=== PATIENT | female | born 1965 | race African-American/Black ===

== ENCOUNTER 2017-02-12 13:30 | Emergency (ER) | payer SELFPAY ==
[2017-02-12 13:35] VITALS: BP 179/89; PULSE 106; TEMP 98.4; BMI 32.5
[2017-02-12] MEDS ORDERED: BACITRACIN 15 GM TUBE TOPICAL OINTMENT TP STA (14:18)
[2017-02-12] MEDS ORDERED: BACITRACIN 15 GM TUBE TOPICAL OINTMENT ONE (14:21)
--- NOTE | 2017-02-12 14:24 | PDOC ---
Post Exposure HPI - General Chief Complaint: Non EmpBld/Body Flud Exposure Stated Complaint: NEEDLE PRICK Time Seen by Provider: 02/12/17 14:02 History Source: Patient Exam Limitations: No Limitations - History of Present Illness Initial Comments: 02/12/17 14:18 51 yr female works at [employer] states she was accidentaly stuck by a scalpel to her right hand after the doctor used it on a patient. Pt states the source patient is HIV and Hepatitis negative, she confirmed this with the doctor taking care of the pt at the [facility]. . pt unknown tetanus. no allergies. Timing: just prior to arrival Severity: mild Exposed Location: Right: Hand(s) (base of second digit palm side ) Assessing Significant Risk PEP: Yes Percutaneous Past History - Past Medical History Allergies/Adverse Reactions: Allergies No Known Allergies Allergy (Verified 02/12/17 13:35) Home Medications: Ambulatory Orders Furosemide 20 mg PO ASDIR 02/12/17 Olmesartan/Hydrochlorothiazide [Benicar Hct 20-12.5 mg Tablet] 1 each PO ASDIR 02/12/17 - Immunization History Tetanus Status: More than 5 years - Social History Smoking Status: Never smoked *Physical Exam - Vital Signs Last Vital Signs Temp Pulse Resp BP Pulse Ox 98.4 F 106 H 20 179/89 98 02/12/17 13:32 02/12/17 13:32 02/12/17 13:32 02/12/17 13:32 02/12/17 13:32 - Physical Exam General Appearance: Yes: Nourished, Appropriately Dressed HEENT: positive: EOMI, KENYA Respiratory/Chest: positive: Lungs Clear, Normal Breath Sounds Cardiovascular: positive: Regular Rhythm, Regular Rate Extremity: positive: Normal Capillary Refill, Normal Range of Motion, Other ( right hand base of 2nd digit palmar surface with superficial 4mm linear laceration, no bleeding ) Integumentary: positive: Normal Color, Dry, Warm Post Exposure - ED Protocol - Exposure Treatment Washing/Decontamination: Soap/Water Source Patient HIV Status:: HIV Negative Is PEP indicated?: No Prophylaxis given?: No Additional Treatment:: DT Medical Decision Making - Medical Decision Making 02/12/17 14:22 cc: accidental scalpel stick to right hand wound cleaned with betadine, peroxide bacitracin placed labs drawn will update tetanus *DC/Admit/Observation/Transfer Diagnosis at time of Disposition: Needlestick injury accident Qualifiers: Encounter type: initial encounter Qualified Code(s): W27.3XXA - Contact with needle (sewing), initial encounter - Discharge Dispostion Disposition: HOME Condition at time of disposition: Good - Referrals Referrals: Logan Martinez MD [Primary Care Provider] - - Patient Instructions Additional Instructions: follow with your medical doctor in 3 months for a repeat HIV test keep the wound clean and dry with antibacterial soap and water, apply bacitracin and bandaid to the wound any signs of infection return to the ER 02/12/17 1. As discussed, a screening test for the HIV virus was performed today. Your HIV test is Negative (normal). 2. As discussed, if you engaged in high risk-behavior in the three (3) months prior to this test, you could still potentially be at risk and you will need to be re-tested. 3. As discussed, avoid any high risk behavior (such as unprotected sex or needle-sharing) in the future to minimize the chances of hiral HIV. - Post Discharge Activity Work/School Note: Back to Work
[2017-02-12] MEDS ORDERED: DIPHTH,PERTUSS(ACELL),TET 0.5 ML DISP.SYRIN IM ONE (15:11)
[2017-02-12 15:56] LABS: HIV 1 & 2 AB NEGATIVE; HIV 1 AGp24 NEGATIVE
== END 2017-02-12 16:24 | disposition home or self-care (01) ==
LOC: JERFT 13:30
PROC: 3E0234Z Introduction of Serum, Toxoid and Vaccine into Muscle, Percutaneous Approach (ICD-10-PCS; principal; 2017-02-12)
DX: S61.411A Laceration without foreign body of right hand, initial encounter (principal); W26.0XXA Contact with knife, initial encounter; Y93.F9 Activity, other caregiving; Y92.128 Other place in nursing home as the place of occurrence of the external cause; Y99.0 Civilian activity done for income or pay
CPT/HCPCS: 36415; 80074; 84703; 87389; 90715; 99282-25

== ENCOUNTER 2021-10-02 16:03 | Emergency (ER) | payer OTHER ==
[2021-10-02 16:40] VITALS: BP 160/78; PULSE 86; TEMP 97.9; BMI 34.9
[2021-10-02 20:34] LABS: BASO % 0.6 % (0-2.0); EOS % 1.9 % (0-4.5); HEMATOCRIT 35.2 % (32.4-45.2); HEMOGLOBIN 11.7 GM/dL (10.7-15.3); LYMPH % 21.9 % (8-40); MCHC 33.2 g/dl (32.0-36.0); MEAN CELL VOLUME 72.4 fl (80-96); MEAN PLT VOLUME 9.5 fl (7.5-11.1); MONO % 11.1 % (3.8-10.2); NEUT % 64.5 % (42.8-82.8); PLATELET COUNT 159 10^3/uL (134-434); RBC 4.85 M/mm3 (3.60-5.2); RDW 18.4 % (11.6-15.6); WHITE BLOOD COUNT 4.5 K/mm3 (4.0-10.0)
[2021-10-02 20:53] LABS: BLOOD UREA NITROGEN 7.6 mg/dL (7-18); CALCIUM 9.9 mg/dL (8.5-10.1)
[2021-10-02 20:54] LABS: ALBUMIN 4.2 g/dl (3.4-5.0)
[2021-10-02 20:57] LABS: CREATININE 0.7 mg/dL (0.55-1.3)
[2021-10-02 20:58] LABS: BILIRUBIN,TOTAL 0.8 mg/dL (0.2-1); TOT PROT 7.2 g/dl (6.4-8.2)
== END 2021-10-02 23:25 | disposition home or self-care (01) ==
LOC: JER 16:03
DX: R00.2 Palpitations (principal)
CPT/HCPCS: 36415; 71046-TC-FY; 80053; 84484; 85025; 93005; 93010; 99285-25